=== PATIENT | male | born 1965 | race Caucasian/White ===

== ENCOUNTER → 2016-10-01 | Outpatient (CLI) | payer BC ==
--- NOTE | 2016-10-01 09:13 | MR ---
EXAMINATION TYPE: MR shoulder LT wo con DATE OF EXAM: 10/01/2016 9:05 AM COMPARISON: NONE HISTORY: Lt shoulder pain TECHNIQUE: Multiplanar multispin echo imaging of the left shoulder was performed. 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 Small intrasubstance tear is noted at the muscular tendinous junction. There is als o a small undersurface tear just distal to the critical zone. No evidence for full-thickness tear. Re maining rotator cuff constituents are unremarkable. Bursa: No bursal effusion or thickening is seen. Musculature: There is no muscular tear, contusion, or atrophy. Acromioclavicular joint : There are mild degenerative changes of the acromioclavicular joint. There is no anterior or lateral acromial downsloping. Osseous structures : There are no fractures or regions of abnormal bone marrow signal intensity. Long biceps tendon : The biceps tendon is normally situated within the bicipital groove. No complete or partial biceps tendon tear is present. Small amount of fluid within the biceps tendon sheath may r eflect a degree of tenosynovitis. Glenohumeral Joint fluid : There is no glenohumeral joint effusion. Small amount of fluid within the subcoracoid region. Cartilage and Bone : No focal hyaline cartilage defects are noted. No Hill-Sachs, reverse Hill-Sachs, or bony Bankart lesions are seen. Labrum : There are no SLAP or soft tissue Bankart lesions. No paralabral cysts are seen. OTHER FINDINGS : none IMPRESSION: 1. There is thickening and heterogeneity of the supraspinatus tendon compatible with chronic tendinop athy. Small intrasubstance tear is noted at the muscular tendinous junction. There is also a small un dersurface tear just distal to the critical zone. No evidence for full-thickness tear.
== END | disposition home or self-care (01) ==
LOC: RADMRIMAIN 08:15
PROVIDERS: ATTEND Orthopaedic Surgery
DX: S46.912A Strain of unspecified muscle, fascia and tendon at shoulder and upper arm level, left arm, initial encounter (principal); M67.912 Unspecified disorder of synovium and tendon, left shoulder

== ENCOUNTER → 2016-10-06 | Outpatient (CLI) | payer BC ==
[2016-10-06 10:36] LABS: EKG EKG PERFORMED
[2016-10-06 10:49] LABS: CH 35.7; HCT 39.6 % (39.0-53.0); HDW 2.63; HGB 13.8 gm/dL (13.0-17.5); MCH 35.7 pg (25.0-35.0); MCHC 34.8 g/dL (31.0-37.0); MCV 102.8 fL (80.0-100.0); Macrocytosis Slight; RBC 3.85 m/uL (4.30-5.90); RDW 12.8 % (11.5-15.5)
[2016-10-06 10:59] LABS: Anion Gap 10 mmol/L; Carbon Dioxide 23 mmol/L (22-30); Chloride 107 mmol/L (98-107); Potassium 4.7 mmol/L (3.5-5.1); Sodium 140 mmol/L (137-145)
== END | disposition home or self-care (01) ==
LOC: LABPAT 10:16
PROVIDERS: ATTEND Orthopaedic Surgery
DX: Z01.818 Encounter for other preprocedural examination (principal); M75.42 Impingement syndrome of left shoulder
CPT/HCPCS: 80051; 85027; 93005

== ENCOUNTER 2016-10-15 05:54 | Day surgery (SDC) | payer BC ==
[2016-10-14 14:20] VITALS: BMI 33.0
--- NOTE | 2016-10-14 18:13 | HP ---
DATE OF ADMISSION: 10/15/2016 Emanuel Chin is a 50-year-old patient seen with progressive left shoulder pain. After having treatment options discussed, he elected to proceed with left shoulder arthroscopy. Consent was obtained. His past medical history is hypertension, hypothyroidism, gout. PAST SURGICAL HISTORY: Thyroidectomy. DAILY MEDICATIONS: Benicar, allopurinol, Celexa, meloxicam. ALLERGIES: None. SOCIAL HISTORY: Patient currently smokes cigarettes. PHYSICAL EVALUATION OF THE LEFT SHOULDER: Flexion 160 degrees, abduction 150 degrees, external rotation is 40 degrees with some pain and weakness. Tenderness along the anterolateral acromion and rotator cuff insertion. Impingement +80 degrees. Distal neurovascular exam is intact. Left shoulder radiographs revealed a type II anterior acromion, acromioclavicular joint osteoarthritis, and cystic changes of the tuberosity. A MRI of the left shoulder revealed a partial rotator cuff tear and partial left shoulder impingement with rotator cuff tear. PLAN: Left shoulder arthroscopy, subacromial decompression, possible arthroscopic rotator cuff repair, probable Radha procedure and debridement.
[~2016-10-15 05:54] MED LIST: DEXAMETHASONE SOD PHOSPHATE 10 MG/ML 1 ML VIAL IV ONE; HYDROmorphone 1 MG/ML 1 ML SYRINGE IVP PRN; LACTATED RINGERS 1,000 ML IV SCH; MIDAZOLAM 2 MG/2 ML VIAL IV PRN; ONDANSETRON 4 MG/2 ML VIAL IVP ONE; ceFAZolin 2 GM in SODIUM CHLORIDE 0.9% 100 ML IVPB ONE
[2016-10-15] MEDS ORDERED: LIDOCAINE 1% 20 ML VIAL (10MG/ML) FOR IV START INTRADERMA ONE (06:23)
[2016-10-15] MEDS ORDERED: MIDAZOLAM 2 MG/2 ML VIAL IV ONE (07:02)
[2016-10-15] MEDS ORDERED: fentaNYL (PF) 50 MCG/ML 2 ML AMP IV ONE (07:03)
[2016-10-15] MEDS ORDERED: ePHEDrine 50 MG/ML 1 ML AMP ONE (07:24)
[2016-10-15] MEDS ORDERED: fentaNYL (PF) 50 MCG/ML 2 ML AMP ONE (07:24)
[2016-10-15] MEDS ORDERED: ROPIVACAINE 5 MG/ML 30 ML VIAL ONE (07:24)
[2016-10-15] MEDS ORDERED: ROCURONIUM BROMIDE 10 MG/ML 10 ML VIAL IV ONE (07:24)
[2016-10-15] MEDS ORDERED: NEOSTIGMINE 1 MG/ML 10 ML VIAL ONE (07:24)
[2016-10-15] MEDS ORDERED: LIDOCAINE 2%-EPI 1:100,000 20 ML VIAL ONE (07:24)
[2016-10-15] MEDS ORDERED: GLYCOPYRROLATE 0.2 MG/ML 2 ML VIAL ONE (07:24)
[2016-10-15] MEDS ORDERED: PROPOFOL 10 MG/ML 20 ML VIAL IV ONE (07:24)
[2016-10-15] MEDS ORDERED: LIDOCAINE 1% INJ 10MG/ML (20 ML MDV) ONE (07:24)
[2016-10-15] MEDS ORDERED: LACTATED RINGERS 1,000 ML IV ONE (08:32)
[2016-10-15 09:28] VITALS: TEMP 97.7
--- NOTE | 2016-10-15 09:28 | P.OP ---
Date of Procedure: 10/15/16 Preoperative Diagnosis: Left shoulder impingement Postoperative Diagnosis: 1. Left shoulder rotator cuff tear 2. Left shoulder impingement 3. Left shoulder acromioclavicular joint osteoarthritis 4. Left shoulder partial biceps tendon tear 5. Left shoulder superficial labral tear Procedure(s) Performed: 1. Left shoulder arthroscopic rotator cuff repair 2. Left shoulder arthroscopic subacromial decompression 3. Left shoulder arthroscopic Radha procedure 4. Left shoulder arthroscopic biceps tenotomy 5. Left shoulder arthroscopic debridement labral tear Implants: 1-6.5 valeris peek anchor Anesthesia: GETA, regional (Shoulder block) Surgeon: Edmar Odonnell Hop Strainer #1: Rich Camacho Estimated Blood Loss (ml): 20 Pathology: none sent Condition: stable Disposition: PACU Indications for Procedure: 50-year-old patient seen with left shoulder pain. After having options regarding treatment discussed elected to proceed with arthroscopy. Consent regarding the procedure was obtained. Operative Findings: See description of procedure Description of Procedure: Patient underwent a shoulder block by department of anesthesia. The patient was then taken to the operative suite. The patient underwent a general anesthetic by the department of anesthesia. The patient was placed into a lateral position and secured. There was appropriate padding of the bony prominence. Left shoulder was then prepped and draped in normal sterile orthopedic fashion. We placed the extremity in 10 pounds of longitudinal traction. A posterior incision was now made for a posterior working portal site. The trocar and cannula were inserted into the glenohumeral joint. Arthroscopy was initiated. Spinal needle was now inserted anteriorly, to ascertain the anterior working portal site. An incision was now made in that area, a trocar was inserted followed by a probe. There was superficial tearing of the superior labrum. There was partial tearing of the long head biceps tendon. There was a obvious through and through rotator cuff tear visualized from the glenohumeral side. There were grade 1 chondral malacia changes of the glenohumeral joint with no osteochondral tears present. I performed an arthroscopic biceps tenotomy. I debrided the labral tear down to stable tissue. The residual labrum was probed and found to be stable. Instruments were now removed from the glenohumeral joint. Utilizing the posterior working portal site, the trocar and cannula were inserted into the subacromial space. Arthroscopy initiated. I made an incision 2 fingerbreadths lateral to the acromion. I introduced my trocar followed by my ArthroCare ablator. I now began ablating thick subacromial bursal tissue, which exposed the undersurface of the anterior acromion. This was diminished subacromial space. There was a very prominent anterior acromion. A motorized bur was introduced and a subacromial decompression was performed. I also excised some osteophytes off the inferior aspect of the distal clavicle. The AC joint was visualized and noted to be fairly arthritic. Our motorized bur was introduced in the anterior portal site and a Radha procedure was performed without difficulty, decompressing the AC joint nicely. I turned my attention to the rotator cuff. There was about a 1.5 cm tear along the distal supraspinatus. I debrided that down to stable tissue utilizing motorize shaver. It was freely mobile over the footprint. I abraded the footprint with a motorized bur. I now passed 3 everted mattress sutures with good bites of rotator cuff tendon. I now punched lateral hole for anchor. I introduced a 5.5 anchor but was unable to achieve adequate purchase with this anchor. I then switched that out for a 6.5 anchor which gave us good fixation and good compression of the tendon along the footprint. Residual suture limbs were clipped. The repair was probed and found to be stable. I injected 1 mL of Allogen into the footprint/repair site. Instruments now removed from the portal sites. All portal sites were approximated with nylon suture. Sterile dressings were applied followed by a shoulder immobilizer. Abhijit BERGMAN assisted with the procedure. The patient was awakened, transferred to a bed, and taken to recovery in stable condition.
[2016-10-15] MEDS ORDERED: HYDROcodone/APAP 7.5-325MG 1 EACH TAB PO ONE ×2 (10:44→10:48)
[2016-10-15 10:49] VITALS: RESP 18
[2016-10-15 11:33] VITALS: BP 131/84; PULSE 62
--- NOTE | 2016-10-15 18:41 | P.ONQ ---
Anesthesiology Proc Note - PNB - Peripheral Nerve Block Performed Left Interscalene Single Time Out Performed: Yes Indication: Acute Post-Operative Pain, Requested by physician Sedation Type: Awake Preparation: Sterile Prep Position: Supine Needle Size: 50mm (2") Needle Gauge: 21 Technique: Ultrasound Injectate: 0.5% Ropivacaine (see comment for volume) (.5% ropi 20cc plus xylo2% plus epi 15cc) Blood Aspirated: No Pain Paresthesia on Injection Noted: No Resistance on Injection: Normal Events: Uneventful and Well Tolerated
== END 2016-10-15 12:18 | disposition home or self-care (01) ==
LOC: OR 05:54
PROVIDERS: ATTEND Orthopaedic Surgery
DX: M75.112 Incomplete rotator cuff tear or rupture of left shoulder, not specified as traumatic (principal); M75.42 Impingement syndrome of left shoulder; M19.012 Primary osteoarthritis, left shoulder; S46.112A Strain of muscle, fascia and tendon of long head of biceps, left arm, initial encounter; S43.492A Other sprain of left shoulder joint, initial encounter; X58.XXXA Exposure to other specified factors, initial encounter; I10 Essential (primary) hypertension; M10.9 Gout, unspecified; E89.0 Postprocedural hypothyroidism; F17.210 Nicotine dependence, cigarettes, uncomplicated; F32.9 Major depressive disorder, single episode, unspecified; Z79.899 Other long term (current) drug therapy
CPT/HCPCS: 64415; 29824; 29827; 29826; C1713 ×2; C1765; J2250; J1100; J2710; J0690; J2405; J2001; J3010; J2795; J2704

== ENCOUNTER → 2018-07-08 | Outpatient (CLI) | payer BC ==
--- NOTE | 2018-07-08 10:52 | MR ---
EXAMINATION TYPE: MR shoulder RT wo con DATE OF EXAM: 07/08/2018 COMPARISON: Plain film 06/29/2018 HISTORY: Pain in right shoulder TECHNIQUE: Multiplanar, multisequence imaging of the right shoulder is performed without contrast. FINDINGS: Rotator Cuff: There is abnormal increased signal involving the rotator cuff, partial full-thickness t ear of the infraspinatus tendon is noted, there supraspinatus tendon is also at attenuated distally l ikely due to a partial full-thickness tear. No evident retraction. Acromioclavicular Joint: Hypertrophic changes present at the acromioclavicular joint causes mass effe ct on the musculotendinous junction of supraspinatus. There is subacromial subdeltoid bursal fluid. Glenohumeral Joint: Intact Labrum: Some increased signal is noted superior labrum at its anterior aspect, difficult to exclude t ear, SLAP lesion. Biceps Tendon: Long head of biceps tendon is perched anteriorly at the level of the bicipital groove, there is fluid signal about the tendon. Increased signal within the tendon compatible with tendinosi s at the level of its origin. Bone marrow signal: Pseudocysts are present within the humeral head. Other: Small amount of joint fluid. There is a distal acromial spur. IMPRESSION: Partial full-thickness tear of the rotator cuff tendon as described. Correlate for impingement. Findi ngs of the biceps tendon and glenoid labrum as described.
== END ==
LOC: RADMRIMAIN 08:52
PROVIDERS: ATTEND Orthopaedic Surgery
DX: M75.101 Unspecified rotator cuff tear or rupture of right shoulder, not specified as traumatic (principal); S43.431A Superior glenoid labrum lesion of right shoulder, initial encounter

== ENCOUNTER → 2018-07-28 | Outpatient (CLI) | payer BC ==
[2018-07-28 09:41] LABS: Basophils % (A) 1 %; Eosinophils # (A) 0.1 k/uL (0-0.7); Eosinophils % (A) 3 %; HCT 41.7 % (39.0-53.0); HGB 13.7 gm/dL (13.0-17.5); Lymphocytes # (A) 1.3 k/uL (1.0-4.8); Lymphocytes % (A) 33 %; MCH 34.3 pg (25.0-35.0); MCHC 32.8 g/dL (31.0-37.0); MCV 104.6 fL (80.0-100.0); Macrocytosis Slight; Mean Platelet Volume 8.6; Monocytes # (A) 0.2 k/uL (0-1.0); Monocytes % (A) 5 %; Neutrophils # (A) 2.3 k/uL (1.3-7.7); Neutrophils % (A) 57 %; Platelet Count 151 k/uL (150-450); RBC 3.99 m/uL (4.30-5.90); WBC 4.1 k/uL (3.8-10.6)
[2018-07-28 09:53] LABS: Potassium 4.7 mmol/L (3.5-5.1)
== END | disposition home or self-care (01) ==
LOC: LABWHC1 09:06
PROVIDERS: ATTEND Orthopaedic Surgery
DX: Z01.818 Encounter for other preprocedural examination (principal); Z01.812 Encounter for preprocedural laboratory examination; M75.41 Impingement syndrome of right shoulder
CPT/HCPCS: 36415; 80051; 85025; 93005

== ENCOUNTER 2018-08-18 05:49 | Day surgery (SDC) | payer BC ==
[2018-08-12 17:58] VITALS: BMI 33.7
--- NOTE | 2018-08-17 13:08 | HP ---
HISTORY AND PHYSICAL Surgery scheduled for 08/18/2018. Emanuel Chin is a 52-year-old patient seen with progressive right shoulder pain. We discussed treatment options. He elected to proceed with arthroscopy. Consent was obtained. PAST MEDICAL HISTORY: Hypertension. PAST SURGICAL HISTORY: Thyroidectomy. DAILY MEDICATIONS: 1. Benicar. 2. Allopurinol. 3. Celexa. ALLERGIES: Allergies are none. SOCIAL HISTORY: Smokes 1/4 pack cigarettes daily. PHYSICAL EVALUATION: Physical evaluation of the right shoulder: Flexion is 160 degrees, abduction 140 degrees, external rotation 60 degrees with weakness. There is tenderness along the anterolateral acromion and rotator cuff insertion site. Impingement sign is positive at 100 degrees. Distal neurovascular exam is intact. Right shoulder radiographs revealed a lateral downsloping anterior acromion, evidence for acromioclavicular osteoarthritis. A right shoulder MRI revealed rotator cuff tear, biceps tendinitis, and possible labral tear. IMPRESSION: Right shoulder impingement with rotator cuff tear, acromioclavicular joint osteoarthritis and biceps tendinitis. PLAN: Right shoulder arthroscopy with subacromial decompression, possible arthroscopic rotator cuff repair, probable Radha procedure and debridement. MMODL / IJN: [id number] /
[~2018-08-18 05:49] MED LIST changes: -DEXAMETHASONE SOD PHOSPHATE 10 MG/ML 1 ML VIAL IV ONE; -HYDROmorphone 1 MG/ML 1 ML SYRINGE IVP PRN; -LACTATED RINGERS 1,000 ML IV SCH; -MIDAZOLAM 2 MG/2 ML VIAL IV PRN; -ONDANSETRON 4 MG/2 ML VIAL IVP ONE; -ceFAZolin 2 GM in SODIUM CHLORIDE 0.9% 100 ML IVPB ONE; +ceFAZolin IN SWFI 2 GM/20 ML SYRINGE IVP ONE
[2018-08-18] MEDS ORDERED: DEXAMETHASONE SOD PHOSPHATE 10 MG/ML 1 ML VIAL IV ONE (05:54)
[2018-08-18] MEDS ORDERED: SCOPOLAMINE 1.5MG/72HR PATCH TRANSDERM ONE (05:54)
[2018-08-18] MEDS ORDERED: ONDANSETRON 4 MG/2 ML VIAL IVP ONE (05:54)
[2018-08-18] MEDS ORDERED: LACTATED RINGERS 1,000 ML IV SCH (05:54)
[2018-08-18] MEDS ORDERED: LIDOCAINE 1% 20 ML VIAL (10MG/ML) FOR IV START INTRADERMA PRN (05:54)
[2018-08-18] MEDS ORDERED: HYDROmorphone 0.5 MG/0.5 ML SYRINGE IVP PRN (05:54)
[2018-08-18] MEDS ORDERED: fentaNYL (PF) 50 MCG/ML 2 ML AMP IV ONE (06:57)
[2018-08-18] MEDS ORDERED: MIDAZOLAM 2 MG/2 ML VIAL IV ONE (06:57)
[2018-08-18] MEDS ORDERED: MIDAZOLAM 2 MG/2 ML VIAL ONE (07:24)
[2018-08-18] MEDS ORDERED: fentaNYL (PF) 50 MCG/ML 2 ML AMP ONE (07:24)
[2018-08-18] MEDS ORDERED: NEOSTIGMINE 1 MG/ML 10 ML VIAL ONE (07:24)
[2018-08-18] MEDS ORDERED: LIDOCAINE 1% INJ 10MG/ML (20 ML MDV) ONE (07:24)
[2018-08-18] MEDS ORDERED: ROPIVACAINE 5 MG/ML 30 ML VIAL ONE (07:24)
[2018-08-18] MEDS ORDERED: GLYCOPYRROLATE 0.2 MG/ML 2 ML VIAL ONE (07:24)
[2018-08-18] MEDS ORDERED: PROPOFOL 10 MG/ML 20 ML VIAL IV ONE (07:24)
[2018-08-18] MEDS ORDERED: ROCURONIUM BROMIDE 10 MG/ML 10 ML VIAL IV ONE (07:24)
[2018-08-18] MEDS ORDERED: PHENYLEPHRINE-0.9% NACL SYG 1 MG/10 ML SYRINGE ONE (07:24)
[2018-08-18] MEDS ORDERED: ALBUTEROL INHALER 60 PUFF/8 GM INHALER INHALATION ONE (07:24)
[2018-08-18] MEDS ORDERED: LACTATED RINGERS 1,000 ML IV ONE (08:37)
--- NOTE | 2018-08-18 09:09 | P.OP ---
Date of Procedure: 08/18/18 Preoperative Diagnosis: Right shoulder impingement Postoperative Diagnosis: 1. Right shoulder rotator cuff tear 2. Right shoulder impingement 3. Right shoulder acromioclavicular joint osteoarthritis 4. Right shoulder partial long head biceps tendon tear 5. Right shoulder superficial anterior labral tear Procedure(s) Performed: 1. Right shoulder arthroscopic rotator cuff repair 2. Right shoulder arthroscopic subacromial decompression 3. Right shoulder arthroscopic Radha procedure 4. Right shoulder arthroscopic biceps tenotomy 5. Right shoulder arthroscopic debridement superficial labral tear Implants: 14.75 Arthrex swivel lock anchor Anesthesia: GETA, regional (Interscalene block) Surgeon: Edmar Odonnell Estimated Blood Loss (ml): 8 Pathology: none sent Condition: stable Disposition: PACU Indications for Procedure: 52-year-old patient seen with progressive right shoulder pain. After having treatment options discussed, he elected to proceed with arthroscopy. Operative Findings: See description of procedure Description of Procedure: Patient underwent an interscalene block by department of anesthesia for postoperative pain control. The patient was then taken to the operative suite. The patient underwent a general anesthetic by the department of anesthesia. The patient was placed into a lateral position and secured. There was appropriate padding of the bony prominence. Right shoulder was then prepped and draped in normal sterile orthopedic fashion. We placed the extremity in 10 pounds of longitudinal traction. A posterior incision was now made for a posterior working portal site. The trocar and cannula were inserted into the glenohumeral joint. Arthroscopy was initiated. Spinal needle was now inserted anteriorly, to ascertain the anterior working portal site. An incision was now made in that area, a trocar was inserted followed by a probe. There was partial tearing long head biceps tendon with some hyperemia. There was some superficial tearing of the anterior labrum. There were grade 1 chondromalacia changes of the glenohumeral joint. The remaining labrum appeared stable. I performed an arthroscopic biceps tenotomy. I debrided the superficial labral tears down to stable tissue. The residual labrum was found to be stable. Utilizing the posterior working portal site, the trocar and cannula were inserted into the subacromial space. Arthroscopy initiated. I made an incision 2 fingerbreadths lateral to the acromion. I introduced my trocar followed by my ArthroCare ablator. I now began ablating thick subacromial bursal tissue, which exposed the undersurface of the anterior acromion. There was diminished subacromial space. There was a very prominent anterior acromion. A motorized bur was introduced and a subacromial decompression was performed. I also excised some osteophytes off the inferior aspect of the distal clavicle. The AC joint was visualized and noted to be fairly arthritic. The motorized bur was introduced in the anterior portal site and a Radha procedure was performed without difficulty, decompressing the AC joint nicely. I turned my attention to the rotator cuff. There was a 1-1.5 cm rotator cuff tear. I debrided the margins getting down to stable tendon tissue. I introduced my motorized bur and abraded the footprint area, getting some petechial bleeding. I passed 2 everted mattress sutures through good bites of rotator cuff tendon. I repaired the tendon to the footprint utilizing one 4.75 Arthrex anchor. There was good compression of the tendon along the footprint. Residual suture limbs were clipped. I injected 1 mL Renue intra-articular. Instruments now removed from the portal sites. All portal sites were approximated with nylon suture. Sterile dressings were applied followed by a shoulder sling. The patient was awakened, transferred to a bed, and taken to recovery in stable condition.
[2018-08-18 09:22] VITALS: TEMP 97.5
[2018-08-18 09:53] VITALS: RESP 18
--- NOTE | 2018-08-18 10:14 | P.ONQ ---
Anesthesiology Proc Note - PNB - Peripheral Nerve Block Performed Right Interscalene Single Time Out Performed: Yes Procedure Start Time: 06:55 Indication: Acute Post-Operative Pain Specifically requested for management of pain by DrCristhian: Edmar Odonnell Sedation Type: Sedate with meaningful contact maintained Preparation: Sterile Prep Position: Supine Catheter: None Needle Types: Other (see comment) (Pajunk) Needle Size: 50mm (2") Needle Gauge: 21 Technique: Ultrasound Injectate: 0.5% Ropivacaine (see comment for volume) (20cc) Blood Aspirated: No Pain Paresthesia on Injection Noted: No Resistance on Injection: Normal Events: Uneventful and Well Tolerated
[2018-08-18 10:49] VITALS: BP 121/83; PULSE 56
== END 2018-08-18 10:50 | disposition home or self-care (01) ==
LOC: OR 05:49
PROVIDERS: ATTEND Orthopaedic Surgery
DX: M75.101 Unspecified rotator cuff tear or rupture of right shoulder, not specified as traumatic (principal); M75.41 Impingement syndrome of right shoulder; M19.011 Primary osteoarthritis, right shoulder; F17.210 Nicotine dependence, cigarettes, uncomplicated; M75.21 Bicipital tendinitis, right shoulder; S46.111A Strain of muscle, fascia and tendon of long head of biceps, right arm, initial encounter; M24.111 Other articular cartilage disorders, right shoulder; M10.9 Gout, unspecified; I10 Essential (primary) hypertension; E78.5 Hyperlipidemia, unspecified; Z79.1 Long term (current) use of non-steroidal anti-inflammatories (NSAID); Z79.899 Other long term (current) drug therapy
CPT/HCPCS: 29827; 29826; 29824; 64415; C1713 ×2; C1765; J2250; J2710; J2405; J2001; J3010; J2795; J2370; J2704; J0690

== ENCOUNTER → 2019-07-28 | Outpatient (CLI) | payer BC ==
[2019-07-28 13:20] LABS: Basophils # (A) 0.1 k/uL (0-0.2); Basophils % (A) 1 %; Eosinophils # (A) 0.2 k/uL (0-0.7); Eosinophils % (A) 3 %; HCT 40.2 % (39.0-53.0); HGB 13.6 gm/dL (13.0-17.5); Lymphocytes # (A) 1.3 k/uL (1.0-4.8); Lymphocytes % (A) 26 %; MCH 34.2 pg (25.0-35.0); MCHC 33.9 g/dL (31.0-37.0); MCV 100.7 fL (80.0-100.0); Mean Platelet Volume 11.2; Monocytes # (A) 0.3 k/uL (0-1.0); Monocytes % (A) 5 %; Neutrophils # (A) 3.2 k/uL (1.3-7.7); Neutrophils % (A) 62 %; Platelet Count 148 k/uL (150-450); Prothrombin Time 10.4 sec (9.0-12.0); RBC 3.99 m/uL (4.30-5.90); RDW 12.4 % (11.5-15.5)
[2019-07-28 13:38] LABS: Potassium 4.6 mmol/L (3.5-5.1)
== END | disposition home or self-care (01) ==
LOC: LABPAT 12:00
PROVIDERS: ATTEND Orthopaedic Surgery
DX: Z01.818 Encounter for other preprocedural examination (principal); Z01.812 Encounter for preprocedural laboratory examination; M17.11 Unilateral primary osteoarthritis, right knee
CPT/HCPCS: 36415; 80051; 85025; 85610; 87070; 93005

== ENCOUNTER 2019-08-14 05:53 | Day surgery (SDC) | payer BC ==
[2019-08-10 11:21] VITALS: BMI 31.5
--- NOTE | 2019-08-13 11:32 | HP ---
HISTORY AND PHYSICAL Emanuel Chin is a 53-year-old patient seen with symptomatic left knee osteoarthritis. We discussed options for treatment. He elected to proceed with left total knee arthroplasty. Consent regarding the procedure was obtained. PAST MEDICAL HISTORY: Hypertension, hypothyroidism. PAST SURGICAL HISTORY: Thyroidectomy, right shoulder arthroscopy. MEDICATIONS: Celexa, Mobic, Benicar. ALLERGIES: None. SOCIAL HISTORY: Currently smokes 1/4 pack cigarettes daily. PHYSICAL EXAMINATION: Evaluation of the left knee: His range of motion is 0-130. He is tender along the medial joint line. Crepitus along the medial patellofemoral compartments. Pain with patellofemoral compression. Ligaments stable. Hip rotation without pain. Distal neurovascular exam is intact. RADIOGRAPHS: Radiographs of the left knee revealed severe osteoarthritic changes. IMPRESSION: 1. Left knee osteoarthritis, severe. 2. Hypertension. 3. Hypothyroidism. PLAN: Left total knee arthroplasty. Surgery 08/14/2019. MMODL / IJN: [id number] /
[~2019-08-14 05:53] MED LIST changes: +ACETAMINOPHEN TAB 500 MG TAB PO ONE; +MELOXICAM 7.5 MG TAB PO ONE; +TRANEXAMIC ACID 1,000 MG in SODIUM CHLORIDE 0.9% 100 ML IVPB ONE; -ceFAZolin IN SWFI 2 GM/20 ML SYRINGE IVP ONE
[2019-08-14] MEDS ORDERED: ROPIVACAINE 246.25 MG, EPINEPHrine 0.5 MG, KETOROLAC 30 MG, cloNIDine HCL/PF 80 MCG, WA... MISCELLANE ONE ×5 (06:00)
[2019-08-14] MEDS ORDERED: DEXAMETHASONE SOD PHOSPHATE 10 MG/ML 1 ML VIAL IV ONE (06:04)
[2019-08-14] MEDS ORDERED: HYDROmorphone 0.5 MG/0.5 ML SYRINGE IVP PRN ×3 (06:04→09:35)
[2019-08-14] MEDS ORDERED: ONDANSETRON 4 MG/2 ML VIAL IVP ONE (06:04)
[2019-08-14] MEDS ORDERED: SCOPOLAMINE 1.5MG/72HR PATCH TRANSDERM ONE (06:04)
[2019-08-14 06:48] VITALS: TEMP 97.4
[2019-08-14] MEDS: LACTATED RINGERS 1,000 ML IV SCH ×2 (06:48→12:23)
[2019-08-14] MEDS: MIDAZOLAM 2 MG/2 ML VIAL IV PRN ×2 (06:55→12:47)
[2019-08-14] MEDS: fentaNYL (PF) 50 MCG/ML 2 ML AMP IV ONE ×2 (06:55→07:15)
[2019-08-14] MEDS ORDERED: MIDAZOLAM 2 MG/2 ML VIAL ONE (07:26)
[2019-08-14] MEDS ORDERED: PROPOFOL 10 MG/ML 20 ML VIAL IV ONE (07:26)
[2019-08-14] MEDS ORDERED: TRANEXAMIC ACID 1,000 MG/10 ML VIAL ONE (07:26)
[2019-08-14] MEDS ORDERED: HYDROmorphone (PF) 1 MG/ML ONE (07:26)
[2019-08-14] MEDS ORDERED: PHENYLEPHRINE-0.9% NACL SYG 1 MG/10 ML SYRINGE ONE (07:26)
[2019-08-14] MEDS ORDERED: GLYCOPYRROLATE 0.2 MG/ML 2 ML VIAL ONE (07:26)
[2019-08-14] MEDS ORDERED: NEOSTIGMINE 1 MG/ML 10 ML VIAL ONE (07:26)
[2019-08-14] MEDS ORDERED: ROCURONIUM BROMIDE 10 MG/ML 5 ML VIAL IV ONE (07:26)
[2019-08-14] MEDS ORDERED: fentaNYL (PF) 50 MCG/ML 2 ML AMP ONE (07:26)
[2019-08-14] MEDS ORDERED: SODIUM CHLORIDE 0.9% 100 ML BAG ONE (07:26)
[2019-08-14] MEDS ORDERED: LIDOCAINE 1% INJ 10MG/ML (20 ML MDV) ONE (07:26)
[2019-08-14] MEDS ORDERED: ROPIVACAINE 0.2%-NS ON-Q PUMP 1,090 MG, EMPTY PAIN BALL 1 EACH MISCELLANE PRN (08:00)
--- NOTE | 2019-08-14 08:02 | P.ANPRN ---
Procedure Note - Anesthesia - Nerve Block Performed Left Adductor Canal Infusion Time Out Performed: Yes Date of Procedure: 08/14/19 Procedure Start Time: 06:54 Procedure Stop Time: 07:05 Location of Patient: PreOp Indication: Acute Post-Operative Pain, Requested by Surgeon Specifically requested for management of pain by DrCristhian: Edmar Odonnell Sedation Type: Sedate with meaningful contact maintained Preparation: Sterile Prep Position: Supine Catheter Depth at Skin (cm): 6 Catheter: Indwelling Needle Types: Pajunk Needle Gauge: 18 Ultrasound used to visualize needle placement: Yes Ultrasound used to observe medication spread: Yes Injectate: 0.5% Ropivacaine (see comment for volume) (20 cc) Blood Aspirated: No Pain Paresthesia on Injection Noted: No Resistance on Injection: Normal Image Stored and Saved: Yes Events: Uneventful and Well Tolerated
[2019-08-14] MEDS ORDERED: LACTATED RINGERS 1,000 ML IV ONE ×2 (08:07→09:35)
[2019-08-14] MEDS ORDERED: HYDROcodone/APAP 7.5-325MG 1 EACH TAB PO PRN (09:35)
[2019-08-14] MEDS ORDERED: NALOXONE 0.4 MG/ML 1 ML VIAL IV PRN (09:35)
[2019-08-14] MEDS ORDERED: HYDROmorphone 1 MG/ML 1 ML SYRINGE IVP PRN (09:35)
[2019-08-14] MEDS ORDERED: HYDROcodone/APAP 5-325MG 1 EACH TAB PO PRN (09:35)
[2019-08-14] MEDS ORDERED: ONDANSETRON 4 MG/2 ML VIAL IVP PRN (09:35)
--- NOTE | 2019-08-14 09:35 | P.OP ---
Date of Procedure: 08/14/19 Preoperative Diagnosis: Left knee osteoarthritis Postoperative Diagnosis: Left knee osteoarthritis Procedure(s) Performed: Left total knee arthroplasty Implants: 1. Depuy attune size 7 cruciate retaining cemented femur 2. Depuy attune size 6 fixed-bearing cemented tibial baseplate 3. Depuy attune size 7 fixed-bearing 6 mm polyethylene tibial insert 4. Depuy attune 38 mm all polyethylene cemented patella Anesthesia: GETA, regional (Adductor canal catheter), local Surgeon: Edmar Odonnell Hand Braille Transcriber #1: Rich Camacho Estimated Blood Loss (ml): 50 Pathology: other (Bone) Condition: stable Disposition: PACU Indications for Procedure: 53-year-old patient seen with progressive symptomatic left knee osteoarthritis. After treatment options were discussed, he elected to proceed with total knee arthroplasty. Operative Findings: See description of procedure Description of Procedure: Patient was taken to the operative suite after having an adductor canal catheter placed by the department of anesthesia. Patient underwent a general anesthetic by the department of anesthesia. Patient was given preoperative IV intake antibiotics and TXA. A well-padded tourniquet was placed about the left lower extremity. The lower extremity was then prepped and draped in the normal sterile orthopedic fashion. The extremity was elevated, a tourniquet was insufflated to 300. A standard anterior incision was made sharply through skin. Dissection was taken down through the subcutaneous soft tissues down to the extensor mechanism. A medial arthrotomy was performed, patella was everted and knee was flexed. There was advanced osteoarthritis noted. I introduced my distal intramedullary femoral drill. I then introduced the distal femoral cutting jig. Abhijit BERGMAN secured the cutting jig with 2 pins. I held retractors in position while Abhijit BERGMAN performed the distal femoral resection through the guide area we now removed her distal femoral cutting guide. We now placed our 4-in-1 femoral cutting block and positioned and it was secured with 2 pins by Abhijit BERGMAN while I held the block in position. The distal femoral finishing was now completed. A proximal tibial cutting guide was positioned. I held the guide in the appropriate position with both hands well Abhijit BERGMAN inserted stabilizing pins into the guide. Proximal tibial cut was made. We now placed a trial femoral component into position, along with an appropriate size tibial tray and insert. We now took the knee through range of motion and had full extension good flexion and good overall soft tissue balance noted. The patella was everted and stabilized with 2 towel clips held by Abhijit BERGMAN while I performed a flush with patellar quad tendon utilizing a fresh sawblade. We templated the patella, appropriate drill holes were made. An appropriate trial patella was positioned, knee was taken through full range of motion with the patella tracking very nicely. The trial patella was removed. Drill holes were made through the femoral component. All trial components were removed after marking off the appropriate rotation of the tibia. Retractors were now positioned along the proximal tibia. An appropriate keel punch was made with the appropriate size tibial guide by myself on Abhijit BERGMAN assisted by holding retractors. At this point appropriate size implants were chosen and opened. The joint was irrigated copiously with pulse lavage mechanical irrigation. The posterior capsule was infiltrated with local analgesic. The wound was irrigated with pulse lavage mechanical irrigation. We mixed antibiotic methylmethacrylate. We placed the knee into flexion. We placed multiple retractors assisted by Abhijit BERGMAN to expose the proximal tibia. Once the methyl methacrylate was ready, the tibial component was cemented into place removing any excess methylmethacrylate form by both myself and Abhijit BERGMAN. The femoral component was cemented into place removing the removing any excess methylmethacrylate performed by both myself and Abhijit BERGMAN. We then inserted the appropriate size polyethylene tibial insert. We made sure that it was locked into position. We took the knee into full extension, and then back in a flexion making sure we had removed any excess methylmethacrylate. The patellar component was then cemented down and secured with clamp. Excess methylmethacrylate removed. We kept the knee in full extension, patellar clamp in position until methylmethacrylate had hardened. Once it had hardened the patellar clamp was removed. The knee was taken through full range of motion. The patella tracked nicely. There was good soft tissue balancing. The tourniquet was now released. Additional hemostasis was achieved via elect rocautery. A second gram of TXA was given. The wound again was irrigated with pulse lavage mechanical irrigation. The superficial soft tissues were infiltrated local analgesic. The extensor mechanism was repaired with Vicryl. We checked the repair with range of motion and it was stable. The subcutaneous soft tissues were repaired with Vicryl in layers. The skin was approximated with pernio/Dermabond. Sterile dressings were applied followed by loose web roll and Justin bandage. The patient was transferred to a bed, and taken to recovery in stable and satisfactory condition. Abhijit BERGMAN assisted with this complex procedure.
--- NOTE | 2019-08-14 10:28 | XR ---
EXAMINATION TYPE: XR knee limited LT DATE OF EXAM: 08/14/2019 COMPARISON: NONE HISTORY: 53-year-old male evaluation for postoperative abnormality and alignment TECHNIQUE: Portable AP and crosstable lateral views FINDINGS: Images show placement of left total knee arthroplasty. Distal femoral and proximal tibial components of the prosthesis appear well seated without periprosthetic fracture. Alignment grossly anatomic. Ant erior soft tissue swelling with scattered soft tissue air as well as intra-articular air related to r ecent operation. IMPRESSION: Uncomplicated postoperative appearance left total knee arthroplasty.
[2019-08-14] MEDS ORDERED: HYDROcodone/APAP 7.5-325MG 1 EACH TAB PO ONE (11:00)
[2019-08-14 13:50] VITALS: BP 149/96; PULSE 85; RESP 18
== END 2019-08-14 14:45 | disposition home health service (06) ==
LOC: OR 05:53
PROVIDERS: ATTEND Orthopaedic Surgery
DX: M17.12 Unilateral primary osteoarthritis, left knee (principal); I10 Essential (primary) hypertension; E03.9 Hypothyroidism, unspecified; E78.5 Hyperlipidemia, unspecified; F17.210 Nicotine dependence, cigarettes, uncomplicated; Z79.1 Long term (current) use of non-steroidal anti-inflammatories (NSAID); Z79.899 Other long term (current) drug therapy; Z88.7 Allergy status to serum and vaccine; Z87.442 Personal history of urinary calculi
CPT/HCPCS: 97161; 64448; 76942; 88300; 73560; 27447; C1776; C1713; J2250; J0171; J1100; J2710; J0690; J2405; J2001; J3010; J1885; J1170; J2795 ×2; J2370; J2704; J0735

== ENCOUNTER 2021-12-26 00:14 | Emergency (ER) | payer OTHER ==
[2021-12-26 00:21] VITALS: RESP 18; TEMP 98.3
[2021-12-26] MEDS ORDERED: MORPHINE SULFATE 4 MG/ML SYRINGE IV STA (01:19)
--- NOTE | 2021-12-26 01:22 | ED ---
Lower Extremity Injury HPI - General Chief Complaint: Extremity Injury, Lower Stated Complaint: broken ankle Time Seen by Provider: 12/26/21 00:51 Source: patient Mode of arrival: EMS Limitations: no limitations - History of Present Illness Initial Comments: This patient is a 56-year-old man who presents with complaint of right ankle injury. Patient states she had been sitting in his chair believes she had dosed off. He states he woke up and got up to let his dog out. When he got up he felt lightheaded and fell. He has had problems with vertigo and states this is not unusual. Patient states he felt a snap when he fell and then there was deformity at his ankle. EMS was called and transported him here. Patient at initial arrival declined analgesic medication. The patient subsequently now requesting pain medication. MD Complaint: ankle injury Onset/Timin -: hour(s) Injury: Ankle: Right Type of Injury: unknown Place: home Severity: moderate Improves With: immobilization Worsens With: weight bearing Context: fall Associated Symptoms: snap/pop sensation - Related Data Home Medications Medication Instructions Recorded Confirmed Olmesartan [Benicar] 10 mg PO DAILY 03/06/15 08/14/19 Meloxicam [Mobic] 15 mg PO DAILY 03/08/15 08/14/19 Citalopram Hydrobromide [CeleXA] 5 mg PO DAILY 03/12/15 08/14/19 Rosuvastatin Calcium [Crestor] 10 mg PO DAILY 08/10/19 08/14/19 Previous Rx's Medication Instructions Recorded Aspirin [Adult Low Dose Aspirin EC] 81 mg PO BID #60 tablet. 08/14/19 HYDROcodone/APAP 7.5-325MG [Norman 1 - 2 each PO Q6HR PRN #56 tab 08/14/19 7.5] traMADol HCl [Ultram] 50 mg PO Q6H PRN #28 tab 08/14/19 HYDROcodone/APAP 5-325MG [Norman 1 tab PO Q4HR PRN 3 Days #18 tab 12/26/21 5-325] Allergies Allergy/AdvReac Type Severity Reaction Status Date / Time influenza virus vaccine, AdvReac BACK PAIN, Verified 08/14/19 07:13 specific JOINT PAIN [influenza virus , FEVER vacc,specific] HAYFEVER, CATS Allergy Wheezing, Uncoded 08/14/19 07:13 ITCHING, EYES SWELL Review of Systems ROS Statement: Those systems with pertinent positive or pertinent negative responses have been documented in the HPI. ROS Other: All systems not noted in ROS Statement are negative. Constitutional: Denies: fever, chills Respiratory: Denies: cough, dyspnea Cardiovascular: Denies: chest pain, palpitations, edema Gastrointestinal: Denies: abdominal pain, vomiting Genitourinary: Denies: dysuria, hematuria Musculoskeletal: Reports: as per HPI, arthralgia Skin: Denies: lesions Neurological: Denies: weakness, numbness, paresthesias Past Medical History Past Medical History: Asthma, GERD/Reflux, Hyperlipidemia, Hypertension, Osteoarthritis (OA) Additional Past Medical History / Comment(s): LT URETERAL CALCULUS; GALLSTONES, nodule in lung PCP IS VIRI GOTTI TORN ROTATOR CUFF RT SIDE. GOUT, HX OF NARAYAN'S PALSY, STATES OCCASIONAL SPEECH ISSUES, HX OF SPINAL MENIGITIS IN PAST History of Any Multi-Drug Resistant Organisms: None Reported Past Surgical History: Orthopedic Surgery Additional Past Surgical History / Comment(s): PARTIAL Parathyroid gland removal , traumatic left 3rd finger injury-skin graft, LITHOTRIPSY, CYSTOSCOPY, left nephrostomy tube insertion AND REMOVAL Past Anesthesia/Blood Transfusion Reactions: Family Hisory of Malignant Hyperthermia, Postoperative Nausea & Vomiting (PONV) Additional Past Anesthesia/Blood Transfusion Reaction / Comment(s): NEPHEW (SISTER'S CHILD) HAD MALIGNANT HYPERTHERMIA AT 3 YRS OF AGE. Past Psychological History: Anxiety Past Alcohol Use History: Occasional Past Drug Use History: Marijuana - Past Family History Mother Family Medical History: Cancer General Exam Limitations: no limitations General appearance: alert, in no apparent distress Head exam: Present: atraumatic, normocephalic Eye exam: Present: normal appearance Respiratory exam: Present: normal lung sounds bilaterally. Absent: respiratory distress, wheezes, rales, rhonchi, stridor Cardiovascular Exam: Present: regular rate, normal rhythm, normal heart sounds. Absent: systolic murmur, diastolic murmur, rubs, gallop GI/Abdominal exam: Present: soft. Absent: distended, tenderness, guarding, rebound, rigid, mass Extremities exam: Present: tenderness, normal capillary refill Neurological exam: Present: alert, oriented X3. Absent: motor sensory deficit Skin exam: Present: warm, dry, intact, normal color. Absent: rash Course Vital Signs 12/26/21 00:18 Temperature 98.3 F Pulse Rate 89 Respiratory 18 Rate Blood Pressure 117/76 O2 Sat by Pulse 97 Oximetry Procedures - Orthopedic Splinting/Casting Injury #1 Side: right Lower Extremity Injury Location: short leg, ankle Lower Extremity Immobilizer: posterior splint, stirrup splint Disposition Clinical Impression: Ankle fracture Disposition: HOME SELF-CARE Condition: Good Prescriptions: HYDROcodone/APAP 5-325MG [Norman 5-325] 1 tab PO Q4HR PRN 3 Days #18 tab PRN Reason: Pain Is patient prescribed a controlled substance at d/c from ED?: Yes When asked, does pt state using other controlled substances?: No If prescribed controlled substance>3 days was MAPS reviewed?: Prescribed <3 Days If opioid is for acute pain is fill amount 7 days or less?: Yes If Rx opioid, was Start Talking consent form obtained?: Yes Referrals: Abbe Castellanos DO [Primary Care Provider] - 1-2 days Edmar Odonnell DO [Family Provider] - 1-2 days Time of Disposition: 03:20
--- NOTE | 2021-12-26 01:55 | XR ---
EXAMINATION TYPE: XR tibia fibula RT DATE OF EXAM: 12/26/2021 COMPARISON: NONE HISTORY: Fall. Pain TECHNIQUE: 4 views FINDINGS: There is acute oblique fracture of the distal shaft of the fibula. No significant displacem ent. There is transverse fracture of the medial malleolus of the ankle. There is probably a tiny chip fracture of the posterior malleolus. There is plantar and Achilles calcaneal spurring. IMPRESSION: There is spiral fracture distal shaft of the fibula. There is also medial and posterior malleolus fra cture without displacement.
[2021-12-26] MEDS ORDERED: HYDROmorphone 1 MG/ML 1 ML SYRINGE IVP STA (03:30)
[2021-12-26 03:37] VITALS: BP 124/67; PULSE 81
== END 2021-12-26 04:08 | disposition home or self-care (01) ==
LOC: EC 00:14
DX: S82.891A Other fracture of right lower leg, initial encounter for closed fracture (principal); J45.909 Unspecified asthma, uncomplicated; E78.5 Hyperlipidemia, unspecified; I10 Essential (primary) hypertension; Z88.7 Allergy status to serum and vaccine; Z91.048 Other nonmedicinal substance allergy status; W07.XXXA Fall from chair, initial encounter; Y92.009 Unspecified place in unspecified non-institutional (private) residence as the place of occurrence of the external cause
CPT/HCPCS: 29515 ×2; 96374 ×2; 96375 ×2; 99283 ×2; 73590; J2270; J1170

== ENCOUNTER → 2021-12-30 | Outpatient (CLI) | payer OTHER ==
[2021-12-30 18:32] LABS: Anion Gap 12.2 mmol/L (10.00-18.00); Carbon Dioxide 20.6 mmol/L (20.0-27.5); Potassium 4.9 mmol/L (3.5-5.5)
[2021-12-30 19:44] LABS: Basophils # (A) 0.07 X 10*3/uL (0.00-0.10); Basophils % (A) 0.7 %; Eosinophils # (A) 0.09 X 10*3/uL (0.04-0.35); Eosinophils % (A) 0.9 %; HCT 32.2 % (39.6-50.0); HGB 10.8 g/dL (13.0-17.0); Immature Grans, Automated 0.8 %; Lymphocytes # (A) 1.47 X 10*3/uL (0.90-5.00); MCH 34.5 pg (27.0-32.0); MCHC 33.5 g/dL (32.0-37.0); MCV 102.9 fL (80.0-97.0); Mean Platelet Volume 14.6 fL (9.5-12.2); Monocytes # (A) 0.71 X 10*3/uL (0.20-1.00); Monocytes % (A) 7.2 %; NRBC Per 100 WBC 0 /100 WBCS (0.0-0.0); Neutrophils # (A) 7.39 X 10*3/uL (1.80-7.70); Neutrophils % (A) 75.4 %; Platelet Count 156 X 10*3/uL (140-440); RBC 3.13 X 10*6/uL (4.40-5.60); RDW 11.5 % (11.5-14.5); WBC 9.81 X 10*3/uL (4.50-10.00)
== END | disposition home or self-care (01) ==
LOC: LABPAT 12:29
PROVIDERS: ATTEND Orthopaedic Surgery
DX: Z01.812 Encounter for preprocedural laboratory examination (principal)
CPT/HCPCS: 80051; 85025

== ENCOUNTER 2022-01-01 05:33 | Day surgery (SDC) | payer OTHER ==
[2021-12-30 15:55] VITALS: BMI 33.0
--- NOTE | 2021-12-31 15:14 | HP ---
HISTORY AND PHYSICAL REASON FOR ADMISSION: Surgery scheduled for 01/01/2022 HISTORY OF PRESENT ILLNESS: Emanuel Chin is a 56-year-old gentleman seen with a displaced right ankle bimalleolar fracture. Recommended open reduction and internal fixation. I reviewed the procedure, risks, complications, benefits, recovery. He was agreeable. Consent obtained. PAST MEDICAL HISTORY: Hypertension, hypothyroidism. PAST SURGICAL HISTORY: Shoulder arthroscopy. MEDICATIONS: Celexa, Benicar, hydrocodone. ALLERGIES: None. SOCIAL HISTORY: Smokes cigarettes. PHYSICAL EVALUATION: Right ankle reveals diffuse ecchymosis and swelling. There are no open wounds. He is tender along the lateral malleolus and medial malleolus. He has limited range of motion with pain. There is a good pedal pulse present. Good perfusion distally. Distal neurovascular exam is intact. RADIOGRAPHS: Radiographs of the right ankle revealed displaced bimalleolar fracture. IMPRESSION: Right ankle displaced bimalleolar fracture. PLAN: Open reduction internal fixation, right ankle bimalleolar fracture. Surgery scheduled for 01/01/2022. MMODL / IJN: [id number] /
[2022-01-01 06:19] LABS: Glucose,Whole Blood 124 mg/dL (70-110)
[2022-01-01 06:21] VITALS: TEMP 97
[2022-01-01] MEDS ORDERED: LACTATED RINGERS 1,000 ML IV ONE ×2 (06:21)
[2022-01-01] MEDS ORDERED: ONDANSETRON 4 MG/2 ML VIAL ONE (06:24)
[2022-01-01] MEDS ORDERED: ONDANSETRON 4 MG/2 ML VIAL IVP ONE (06:45)
[2022-01-01] MEDS ORDERED: SCOPOLAMINE 1 MG/72 HR PATCH TRANSDERM ONE (06:45)
[2022-01-01] MEDS ORDERED: fentaNYL (PF) 50 MCG/ML 2 ML AMP IV ONE (06:59)
[2022-01-01] MEDS ORDERED: MIDAZOLAM 2 MG/2 ML VIAL IV ONE (06:59)
[2022-01-01] MEDS ORDERED: PROPOFOL 10 MG/ML 20 ML VIAL IV ONE (07:25)
[2022-01-01] MEDS ORDERED: KETAMINE 10 MG/ML 20 ML VIAL ONE (07:25)
[2022-01-01] MEDS ORDERED: ePHEDrine 50 MG/ML 1 ML VIAL ONE (07:25)
[2022-01-01] MEDS ORDERED: fentaNYL (PF) 50 MCG/ML 2 ML AMP ONE (07:25)
[2022-01-01] MEDS ORDERED: MIDAZOLAM 2 MG/2 ML VIAL ONE (07:25)
[2022-01-01] MEDS ORDERED: ROPIVACAINE 5 MG/ML 30 ML VIAL ONE (07:25)
[2022-01-01] MEDS ORDERED: PHENYLEPHRINE-0.9% NACL SYG 1,000 MCG/10 ML SYRINGE ONE (07:25)
[2022-01-01] MEDS ORDERED: SODIUM CHLORIDE 0.9% (PF) 10 ML VIAL ONE (07:25)
[2022-01-01] MEDS ORDERED: ceFAZolin 1,000 MG in SODIUM CHLORIDE 0.9% 1,000 ML IRRIGATION ONE (07:49)
--- NOTE | 2022-01-01 09:03 | P.ANPRN ---
Procedure Note - Anesthesia - Nerve Block Performed Right Popliteal Single Time Out Performed: Yes ([id number]) Date of Procedure: 01/01/22 Procedure Start Time: 06:59 Procedure Stop Time: 07:03 Location of Patient: PreOp Indication: Acute Post-Operative Pain, Requested by Surgeon Specifically requested for management of pain by DrCristhian: Edmar Odonnell Sedation Type: Sedate with meaningful contact maintained Preparation: Sterile Prep Position: Left Lateral Catheter: None Needle Types: Pajunk Needle Gauge: 21 Ultrasound used to visualize needle placement: Yes Ultrasound used to observe medication spread: Yes Injectate: 0.5% Ropivacaine (see comment for volume) (15cc + 10 cc nacl) Blood Aspirated: No Pain Paresthesia on Injection Noted: No Resistance on Injection: Normal Image Stored and Saved: Yes Events: Uneventful and Well Tolerated
[2022-01-01 09:04] VITALS: RESP 16
--- NOTE | 2022-01-01 09:04 | P.ANPRN ---
Procedure Note - Anesthesia - Nerve Block Performed Right Adductor Canal Single Time Out Performed: Yes ([id number]) Date of Procedure: 01/01/22 Procedure Start Time: :04 Procedure Stop Time: :07 Location of Patient: Phase I Indication: Acute Post-Operative Pain, Requested by Surgeon Specifically requested for management of pain by DrCristhian: Edmar Odonnell Sedation Type: Sedate with meaningful contact maintained Preparation: Sterile Prep Position: Supine Needle Types: Pajunk Needle Gauge: 21 Ultrasound used to visualize needle placement: Yes Ultrasound used to observe medication spread: Yes Injectate: 0.5% Ropivacaine (see comment for volume) (15cc + 10cc nacl pf) Blood Aspirated: No Pain Paresthesia on Injection Noted: No Resistance on Injection: Normal Image Stored and Saved: Yes Events: Uneventful and Well Tolerated
--- NOTE | 2022-01-01 09:07 | P.OP ---
Date of Procedure: 01/01/22 Preoperative Diagnosis: Displaced right ankle bimalleolar fracture Postoperative Diagnosis: Displaced right ankle bimalleolar fracture Procedure(s) Performed: Open reduction and internal fixation right ankle bimalleolar fracture Implants: Arthrex one third semitubular plate 7 hole with 6 appropriate length 3.5 cortical screws 236 millimeter 4.0 cannulated screws Anesthesia: spinal Surgeon: Edmar Odonnell Comic Book Designer #1: Rich Camacho Estimated Blood Loss (ml): 12 Pathology: none sent Condition: stable Disposition: PACU Indications for Procedure: 56-year-old gentleman who was seen with a displaced right ankle bimalleolar fracture. I recommended open reduction and internal fixation. Patient was agreeable and consent was obtained. Operative Findings: See description of procedure Description of Procedure: Patient was taken to the operative suite. He received preoperative IV antibiotics. He underwent a spinal anesthetic by the department of anesthesia. A well-padded tourniquet was placed along the proximal right lower extremity. The right lower extremity was now prepped and draped in the normal sterile orthopedic fashion. The extremity elevated and tourniquet was insufflated to 250. I made an incision on the lateral malleolus sharply through skin. I dissected down to the fracture site. Periosteal elevation was utilized to define the fracture. It was slightly comminuted an obviously displaced. I used a bone reduction clamp and reduced the fracture. I confirmed adequate reduction on C-arm fluoroscopy. I chose a 7 hole one third semitubular plate and appropriate contour. With this is Abhijit BERGMAN that was held in position while I drilled holes proximally and distally introduced appropriate length 3.5 cortical screws with good fixation noted. The bone clamp was removed. We had good alignment of the fracture with good position of the internal fixation. The C-arm was brought in confirming that. I now turned my attention to the medial malleolus. I made an incision along the medial malleolus sharply through skin. I dissected down the fracture. It was completely displaced fracture along the tip of the medial malleolus. Periosteal elevation was utilized to better define the fracture fragment. Fracture fragments now reduced. It was held in position with a bone reduction clamp and appropriate retraction by Abhijit BERGMAN. I now introduced 2 cannulated wires and I confirmed adequate positioning of those with intraoperative fluoroscopy. I then drilled those guidewires introduced 2 partially threaded 36 mm 4.0 cannulated screws with good fixation of the fragment noted. The bone reduction clamp was removed. I again noted good reduction of the fracture and good fixation. We brought the C-arm back into the operative field. We confirmed adequate reduction of both fractures and good position of our internal fixation as well as mosque of the mortise. The C- arm was pulled back. The wound was irrigated copiously. The subcu soft tissues were repaired with 2-0 Vicryl. The skin was repaired with skin evelyn. Sterile dressings were applied. The tourniquet was now released and immediate capillary refill noted. We placed the extremity into a modified bulky Ferrer splint with the ankle in neutral position. The patient was then transferred to a bed and recovery stable condition. Abhijit BERGMAN assisted in all aspects of the procedure.
--- NOTE | 2022-01-01 09:35 | XR ---
EXAMINATION TYPE: XR ankle limited RT DATE OF EXAM: 01/01/2022 COMPARISON: NONE TECHNIQUE: Two views submitted HISTORY: Post op FINDINGS: There is postsurgical change in near anatomic alignment. There is soft tissue edema and emphysema. IMPRESSION: 1. Postoperative change. Appears in near-anatomic alignment
--- NOTE | 2022-01-01 09:44 | FL ---
EXAMINATION TYPE: FL guidance operating room DATE OF EXAM: 01/01/2022 HISTORY: Fluoroscopy time 15 seconds of fluoroscopy provided. IMPRESSION: 1. Fluoroscopy time.
[2022-01-01 10:31] VITALS: BP 105/67; PULSE 64
== END 2022-01-01 11:48 | disposition home or self-care (01) ==
LOC: OR 05:33
PROVIDERS: ATTEND Orthopaedic Surgery
DX: S82.841A Displaced bimalleolar fracture of right lower leg, initial encounter for closed fracture (principal); G89.18 Other acute postprocedural pain; I10 Essential (primary) hypertension; E03.9 Hypothyroidism, unspecified; F17.210 Nicotine dependence, cigarettes, uncomplicated; E78.5 Hyperlipidemia, unspecified; F41.9 Anxiety disorder, unspecified; F32.A Depression, unspecified; K21.9 Gastro-esophageal reflux disease without esophagitis; G43.909 Migraine, unspecified, not intractable, without status migrainosus; Z88.8 Allergy status to other drugs, medicaments and biological substances; Z88.7 Allergy status to serum and vaccine; Z91.09 Other allergy status, other than to drugs and biological substances; Z79.899 Other long term (current) drug therapy; Z80.9 Family history of malignant neoplasm, unspecified; X58.XXXA Exposure to other specified factors, initial encounter
CPT/HCPCS: 93005; 64447; 64445; 76942; 73600; 27814; C1713; J2250; J0690 ×2; J2405; J3010; J2795; J2370; J2704